=== PATIENT | female | born 1950 | race Hispanic/Latino ===

== ENCOUNTER 2018-04-13 16:29 | Emergency (ER) | payer MEDICARE ==
[2018-04-13] MEDS ORDERED: Tdap Vaccine 0.5 ml Vial (10-64 yrs) IM ONE ×2 (17:56→18:36)
[2018-04-13] MEDS ORDERED: ceFAZolin 1 GM in Sodium Chloride 0.9% 100 ML IVPB ONE (17:58)
[2018-04-13 18:50] LABS: BASO % 0.5 % (0.0-2.0); EOS % 0.5 % (0.0-4.0); HEMOGLOBIN 13.4 g/dL (12.0-16.0); LYMPH # 1.2 K/uL (1.0-4.3); LYMPH % 19.9 % (20.0-40.0); MEAN CELL VOLUME 95.5 fl (81.0-99.0); MEAN CORPUSCULAR HEMOGLOBIN 32.4 pg (27.0-31.0); MEAN CORPUSCULAR HGB CONC 33.9 g/dL (33.0-37.0); MEAN PLATELET VOLUME 8.1 fl (7.2-11.7); MONO # 0.5 K/uL (0.0-0.8); MONO % 8.9 % (0.0-10.0); NEUT # 4.1 K/uL (1.8-7.0); NEUT % 70.2 % (50.0-75.0); NRBC % 0.1 % (0.0-0.0); RBC 4.15 Mil/uL (3.80-5.20); RED CELL DISTRIBUTION WIDTH 12.3 % (11.5-14.5); WHITE BLOOD COUNT 5.8 K/uL (4.8-10.8)
--- NOTE | 2018-04-13 19:05 | ED PDOC ---
HPI: Skin/Bite Injury Time Seen by Provider: 04/13/18 17:35 Chief Complaint (Nursing): Abnormal Skin Integrity Chief Complaint (Provider): Finger Laceration History Per: Patient History/Exam Limitations: no limitations Onset/Duration Of Symptoms: Mins Current Symptoms Are (Timing): Still Present Pain Scale Rating Of: 4 Additional Complaint(s): Patient is a 67 year old female who presents to ED for evaluation of left second digit laceration. Patient states that the affected finger got stuck in the latch of a metal door of a gate. Patient states that she initially had 10/ 10 localized pain to the fingertip but now reports the pain as a 4/10. Patient took no medications prior to arrival. Patient has no other complaints at present. Patient is right hand dominant. PMD: [place] Tetanus: Not UTD Past Medical History Reviewed: Historical Data, Nursing Documentation, Vital Signs Vital Signs: Last Vital Signs Temp 98.0 F 04/13/18 17:02 Pulse 77 04/13/18 17:02 Resp 16 04/13/18 17:02 BP 136/78 04/13/18 17:02 Pulse Ox 100 04/13/18 20:48 - Medical History PMH: Migraine Other PMH: uterine CA - Surgical History Other surgeries: hysterectomy, R knee arthroscopy, R elbow- tendon repair - Family History Family History: States: Unknown Family Hx - Social History Current smoker - smoking cessation education provided: No Alcohol: Social Drugs: Denies - Home Medications Home Medications: Ambulatory Orders Medication Instructions Recorded Acetaminophen [Acetaminophen 8 650 mg PO Q8 PRN #21 tablet.er 04/13/18 Hour] Cefadroxil [Duricef] 500 mg PO BID #28 cap 04/13/18 Ibuprofen [Motrin Tab] 600 mg PO Q6 PRN #28 tab 04/13/18 traMADol [Ultram] 50 mg PO Q6 PRN #12 tab 04/13/18 - Allergies Allergies/Adverse Reactions: Allergies Allergy/AdvReac Type Severity Reaction Status Date / Time No Known Allergies Allergy Verified 04/13/18 17:02 Review of Systems ROS Statement: Except As Marked, All Systems Reviewed And Found Negative Skin: Positive for: Other (laceration to left second digit) Physical Exam - Reviewed Nursing Documentation Reviewed: Yes Vital Signs Reviewed: Yes - Physical Exam Appears: Positive for: Well, Non-toxic, No Acute Distress Head Exam: Positive for: ATRAUMATIC, NORMOCEPHALIC Skin: Positive for: Normal Color, Warm, Dry Eye Exam: Positive for: EOMI, PERRL ENT: Positive for: Other (Mucus membranes moist. Airway patent, (-) stridor. ) Neck: Positive for: Painless ROM, Supple Cardiovascular/Chest: Positive for: Regular Rate, Rhythm Respiratory: Positive for: Normal Breath Sounds. Negative for: Decreased Breath Sounds, Accessory Muscle Use, Respiratory Distress Pulses-Radial (L): 2+ Pulses-Radial (R): 2+ Extremity: Positive for: Other (Left 2nd digit: nearly circumferential laceration of the palmar, medial, and dorsal aspect of left second distal phalanx (+) active bleeding (+) nail involvement (+) volar displacement of distal phalanx. Sensation intact. (+) ecchymosis of distal phalanx (+) mild edema. FROM of all digits including affected digit. Remainder of hand, wrist, and digits nontender with FROM. Cap refill <2 seconds on all digits of left hand. ) Neurologic/Psych: Positive for: Alert, Oriented (x3), Gait (steady in ED). Negative for: Aphasia, Facial Droop - Laboratory Results Result Diagrams: 04/13/18 18:37 - ECG O2 Sat by Pulse Oximetry: 100 (RA) Pulse Ox Interpretation: Normal Medical Decision Making Medical Decision Makin Initial Impression: Acute finger laceration, probable distal phalanx fracture Plan: -Consult to Dr Mccullough, plastics. -IV access -CBC with differential -Keflex 1gm IV -Left hand XR 3 views -Tylenol 650mg PO -Adacel IM [address] Mccullough, who is agreeable to current treatment plan and will see patient in ED to perform wound closure. Requests Marcaine 0.25% and lidocaine 2% be ordered. 1929 XR reviewed: (+) transverse fracture of the proximal distal phalanx of the left second digit with volar displacement. Patient notified that official radiology read will be available in 24 hours and that she would be notified of any discrepancies. CBC reviewed and grossly unremarkable. 1954 Dr Mccullough at bedside performing laceration repair and splint placement. See consult note. [id number] On re-evaluation, patient reports improvement of symptoms. On exam, patient remains AAOx3, in no acute distress. Lungs clear to auscultation, cardiac RRR. Lab/Diagnostic results d/w the patient in great detail. Diagnosis of open finger fracture d/w the patient. Vitals stable. Wound care per Dr Mccullough. Based on history, exam and diagnostic results, plan will be for outpatient follow up with Dr Mccullough as directed. Patient instructed to follow-up with pmd / referral provided / the clinic in 1- 2 days without fail. Advised to take medication as prescribed. Return to the emergency room at any time for any new or worsening symptoms. Patient states she fully agrees with and understands discharge instructions. States that she agrees with the plan and disposition. Verbalized and repeated discharge instructions and plan. I have given the patient opportunity to ask any additional questions. Disposition - Clinical Impression Clinical Impression: Laceration of finger of left hand, Open fracture of finger of left hand - Patient ED Disposition Is Patient to be Admitted: No Discussed With Dr.: Raza Mccullough Doctor Will See Patient In The: ED Counseled Patient/Family Regarding: Studies Performed, Diagnosis, Need For Followup, Rx Given - Disposition Referrals: Raza Mccullough MD [Medical Doctor] - Disposition: Routine/Home Disposition Time: 20:45 Condition: STABLE Additional Instructions: The emergency medical care you received today was directed towards your acute symptoms. If you were prescribed medication, please fill it at the pharmacy and take it as directed. It may take several days for your symptoms to resolve. Return to emergency department if your symptoms worsen, do not improve, or if you have any other problems. Please contact your doctor / referred provider / clinic in 2 days for further evaluation. The treatement in the emergency department cannot replace ongoing medical care by a primary doctor outside of the emergency department. Prescriptions: Acetaminophen [Acetaminophen 8 Hour] 650 mg PO Q8 PRN #21 tablet.er PRN Reason: Pain, Moderate (4-7) Cefadroxil [Duricef] 500 mg PO BID #28 cap Ibuprofen [Motrin Tab] 600 mg PO Q6 PRN #28 tab PRN Reason: Pain, Moderate (4-7) traMADol [Ultram] 50 mg PO Q6 PRN #12 tab PRN Reason: Pain, Severe (8-10) Instructions: Laceration Repair, Laceration Repair With Stitches (DC), Finger Fracture (DC), Common Finger Injuries Forms: [employer] (Kyrgyz) Print Language: PASHTO - POA Present On Arrival: Falls Or Trauma Results - Lab Results Lab Results: 04/13/18 18:37 WBC 5.8 RBC 4.15 Hgb 13.4 Hct 39.7 MCV 95.5 MCH 32.4 H MCHC 33.9 RDW 12.3 Plt Count 247 MPV 8.1 Neut % (Auto) 70.2 Lymph % (Auto) 19.9 L [place] % (Auto) 8.9 Eos % (Auto) 0.5 Baso % (Auto) 0.5 Neut # (Auto) 4.1 Lymph # (Auto) 1.2 [place] # (Auto) 0.5 Eos # (Auto) 0.0 Baso # (Auto) 0.0
[2018-04-13] MEDS ORDERED: Bupivacaine 0.5% Inj(30mL) IJ ONE (19:35)
[2018-04-13] MEDS ORDERED: LIDOCAINE 2% 10ML 20 MG/ML VIAL IJ STA ×2 (19:35→19:54)
[2018-04-13] MEDS ORDERED: Povidone Iodine Topical 10% Sol TOP ONE (19:35)
[2018-04-13] MEDS ORDERED: Povidone Iodine Topical 10% Sol ONE (19:36)
[2018-04-13] MEDS ORDERED: Lidocaine PF 2% (5 ml) Inj (For Cardiac Arrhy) ONE (19:49)
[2018-04-13] MEDS ORDERED: Bupivacaine HCl 0.25% PF (30 ml) Inj ONE (19:50)
[2018-04-13] MEDS ORDERED: Bupivacaine 0.25% Inj(30mL) IJ ONE (19:54)
[2018-04-13 21:20] VITALS: BP 133/76; PULSE 81; RESP 17; TEMP 98.2; O2SAT 98
--- NOTE | 2018-04-14 08:48 | RAD ---
PROCEDURE: Left Hand Radiographs. HISTORY: 2nd digit injury COMPARISON: None. FINDINGS: BONES: There is a transverse fracture through the mid distal phalanx left index finger with the major distal fracture fragment displaced in the volar direction mildly. No dislocation or subluxation. Moderate laceration of the volar skin soft tissues is also questioned. JOINTS: Normal. No osteoarthritic changes. SOFT TISSUES: As above. OTHER FINDINGS: None. IMPRESSION: Transverse fracture through the mid distal phalanx left index finger with minimal volar distraction of the major fracture fragment. Volar soft tissue laceration also suggested in a slightly more proximally in the soft tissues. No dislocation. Clinically correlate further.
== END 2018-04-13 21:11 | disposition home or self-care (01) ==
LOC: H.ER 16:29
DX: S61.219A Laceration without foreign body of unspecified finger without damage to nail, initial encounter (principal); Z85.42 Personal history of malignant neoplasm of other parts of uterus; Z90.710 Acquired absence of both cervix and uterus; W23.1XXA Caught, crushed, jammed, or pinched between stationary objects, initial encounter; Z23 Encounter for immunization
CPT/HCPCS: 12001; 73130; 85025; 90471; 90715; 96365; 99283; J0690